=== PATIENT | female | born 1990 | race Caucasian/White ===

== ENCOUNTER 2023-05-21 06:17 | Emergency (ER) | payer MEDICAID, SELFPAY ==
[2023-05-21 06:24] VITALS: TEMP 36.8; BMI 35.5
--- NOTE | 2023-05-21 06:35 | XR_ITS ---
WS: [id number] Exam: XR foot LT min 3V* [id number] Date/Time of Exam: 05/21/2023 6:35 AM Reason For Exam: trauma No fracture or dislocation. Soft tissues are unremarkable. Small plantar heel spur. XR/XR foot LT min 3V* [id number] IMPRESSION: 1. No fracture or other significant finding.
--- NOTE | 2023-05-21 06:43 | ED.C_ITS ---
HPI - Psych General: Chief Complaint: Psychiatric Symptoms Stated Complaint: NADEGE DUONG Time Seen by Provider: 05/21/23 06:23 Source: patient Mode of arrival: ambulatory History of Present Illness: 33-year-old female presents emergency room complaining of suicidal ideation. She has been going on for 5 years she has not done anything to advance lethality she has not actually had a specific plan she seen at [facility] in [place] she had increasing suicidal thoughts recently and they upped her medication. She is on divalproex acid as well as Risperdal that increased her Risperdal. She has not been admitted for inpatient psychiatric care since she had tried to harm herself at the age of 14. She states she is also had some anxiety attacks. She is not having any specific suicidal thoughts at this time but has had some di fficult time sleeping last night. Additionally she stepped on a nail with her left foot it did bleed a little but she is unsure of when or if she is ever even had a tetanus shot. MD complaint: suicidal ideation and feels depressed Onset (ago): year(s) (5) Duration: intermittent History of same: Yes Relieving factors: none Exacerbating factors: none Associated psychiatric symptoms: depression Associated symptoms: Reports depression and suicidal ideation Treatments prior to arrival: none If self harm: admits thoughts of self harm Review of Systems Const: Denies: fever(s), chills, body aches, change in appetite, fatigue or malaise ENMT: Denies: throat pain, ear or mastoid pain, nasal discharge or nasal congestion Card: Denies: chest pain, edema, dyspnea on exertion or orthopnea Resp: Denies: dyspnea, productive cough or non-productive cough GI: Denies: abdominal pain, nausea, vomiting, diarrhea or constipation : Denies: flank pain, difficulty voiding, dysuria, urinary frequency or urinary urgency Skin/Breast: Denies: rash or pruritus Psych: Reports: depression and suicidal ideation [facility] ED PFSH: Medical History (Updated 05/21/23 @ 07:51 by Reinier Trujillo DO) Depression Physical Exam Const: COMMON NORMALS: no acute distress GENERAL APPEARANCE: cooperative and comfortable ORIENTATION/CONSCIOUSNESS: Yes awake, Yes oriented to person, Yes oriented to place and Yes oriented to time HENMT: COMMON NORMALS: normocephalic, atraumatic and hearing grossly normal bilaterally HEAD & SCALP: normocephalic and atraumatic Resp: COMMON NORMALS: normal respiratory effort, No retractions, No use of accessory muscles and clear to auscultation bilaterally AUSCULTATION: clear to auscultation bilaterally Cardio: COMMON NORMALS: regular rate, regular rhythm and No murmurs present (Cardio) RATE: regular rate RHYTHM: regular rhythm Extremity: COMMON NORMALS: normal to inspection, capillary refill normal, no clubbing, cyanosis or edema, no calf tenderness and no pedal edema Neuro: SENSORIUM/ORIENTATION: Yes oriented to person, Yes oriented to place and Yes oriented to time Skin: COMMON NORMALS: no rashes or lesions noted GENERAL SKIN EXAM: no rashes or lesions noted Course Vital Signs: Vital signs: Vital Signs Temperature 98.3 F 05/21/23 06:24 Pulse Rate 79 05/21/23 09:08 Respiratory Rate 17 05/21/23 09:08 Blood Pressure 144/116 05/21/23 07:02 Pulse Oximetry 99 05/21/23 09:08 Oxygen Delivery Me thod Room Air 05/21/23 07:02 [facility] - Psych Medical Decision Making Patient reports ongoing depression and suicidal thoughts but has not acted on them in several years. She reports no plan to act on them now she has not done anything to advance lethality. Discussed with Dr. Cabrera he concurs does not recommend changing her medications at this point we did add hydroxyzine to use as a short-term as needed. Patient is interested in changing to behavioral health care she is also has some other questions regarding available services to help her due to her mental health issues. Dr. Cabrera and I both felt she could be discharged we will have her go with staff to the crisis intervention to see if they can help arrange for some other services that might be helpful. Patient expresses understanding she reports no suicidal thoughts or plan at this time. Incidentally she had stepped on a nail x-ray was negative no significant laceration or sign of infection on the left foot tetanus updated Medical Records I reviewed the patient's medical records. Lab Data I reviewed the patient's lab results. 05/21/23 07:08 05/21/23 07:08 Radiology Impressions Foot X-Ray 05/21/23 06:35 IMPRESSION: 1. No fracture or other significant finding. Laboratory Results WBC 11.9 10^3/uL (4.0-10.0) H 05/21/23 07:08 RBC 4.85 10^6/uL (4.1-5.3) 05/21/23 07:08 Hgb 15.6 g/dL (11.5-15.3) H 05/21/23 07:08 Hct 44.6 % (37.0-47.0) 05/21/23 07:08 MCV 92.0 fl (81-99) 05/21/23 07:08 MCH 32.2 pg (28.0-34.0) 05/21/23 07:08 MCHC 35.0 g/dL (30.0-36.0) 05/21/23 07:08 RDW 12.4 % (12.1-15.1) 05/21/23 07:08 Plt Count 298 10^3/cmm (130-400) 05/21/23 07:08 MPV 8.6 fL (7.4-10.4) 05/21/23 07:08 Neut % (Auto) 59.1 % 05/21/23 07:08 Lymph % (Auto) 31.6 % 05/21/23 07:08 [place] % (Auto) 7.0 % 05/21/23 07:08 Eos % (Auto) 1.2 % 05/21/23 07:08 Baso % (Auto) 0.6 % 05/21/23 07:08 Neut # (Auto) 7.01 10^3/uL (1.8-7.7) 05/21/23 07:08 Lymph # (Auto) 3.7 10^3/uL (0.8-4.8) 05/21/23 07:08 [place] # (Auto) 0.8 10^3/uL (0.2-0.9) 05/21/23 07:08 Eos # (Auto) 0.1 10^3/uL (0.0-0.8) 05/21/23 07:08 Baso # (Auto) 0.1 10^3/uL (0.0-0.1) 05/21/23 07:08 Nucleated RBC % (auto) 0 % 05/21/23 07:08 Nucleated RBCs # 0.0 /100WBC 05/21/23 07:08 Sodium 136 mmol/L (136-145) 05/21/23 07:08 Potassium 3.8 mmol/L (3.5-5.1) 05/21/23 07:08 Chloride 100 mmol/L (98-107) 05/21/23 07:08 Carbon Dioxide 25 mmol/L (22-29) 05/21/23 07:08 Anion Gap 14.8 (5-19) 05/21/23 07:08 BUN 7 mg/dL (6-20) 05/21/23 07:08 Creatinine 0.5 mg/dL (0.5-0.9) 05/21/23 07:08 GFR Calculation 141.2 mL/min (90-130) H 05/21/23 07:08 Glucose 105 mg/dL (65-115) 05/21/23 07:08 Calculated Osmolality 280 mOsm/kg (285-295) L 05/21/23 07:08 Calcium 8.7 mg/dL (8.5-10.5) 05/21/23 07:08 Total Bilirubin 0.8 mg/dL (0.15-1.2) 05/21/23 07:08 AST 11 U/L (0-32) 05/21/23 07:08 ALT 8 U/L (0-33) 05/21/23 07:08 Alkaline Phosphatase 56 U/L (35-105) 05/21/23 07:08 Total Protein 7.2 g/dL (6.6-8.7) 05/21/23 07:08 Albumin 4.0 g/dL (3.5-5.2) 05/21/23 07:08 Globulin 3.2 g/dL (1.3-4.6) 05/21/23 07:08 HCG, Qual Negative (Negative) 05/21/23 07:04 Urine Color Yellow (Yellow) 05/21/23 07:04 Urine Appearance Clear (CLEAR) 05/21/23 07:04 Urine pH 7 (5-7) 05/21/23 07:04 Ur Specific Desmet 1.010 (1.005-1.030) 05/21/23 07:04 Urine Protein Neg (Negative) 05/21/23 07:04 Urine Glucose (UA) Norm (Normal) 05/21/23 07:04 Urine Ketones Negative (Negative) 05/21/23 07:04 Urine Blood 3+ (Negative) H 05/21/23 07:04 Urine Nitrate Negative (Negative) 05/21/23 07:04 Urine Bilirubin Neg (Negative) 05/21/23 07:04 Urine Urobilinogen Norm mg/dL (Negative) 05/21/23 07:04 Ur Leukocyte Esterase Negative (Negative) 05/21/23 07:04 Urine RBC 15-25 /hpf (0-2) H 05/21/23 07:04 Urine WBC 0-4 /hpf (0-5) H 05/21/23 07:04 Ur Squamous Epith Cells 0-4 /hpf (0-5) H 05/21/23 07:04 Amorphous Sediment Not Reportable 05/21/23 07:04 Urine Bacteria None /hpf (NONE) 05/21/23 07:04 Urine Mucus Trace /hpf 05/21/23 07:04 Salicylates < 0.3 mg/dL (3-10) L 05/21/23 07:08 Acetaminophen < 5.0 ug/mL (10-30) L 05/21/23 07:08 Discharge Plan Discharge Patient Disposition: Home Clinical Impression: Depression Condition: Stable Prescriptions: New hydroxyzine HCl 25 mg tablet 25 mg PO Q6H PRN (Reason: anxiety) Qty: 15 0RF No Action Depakote ER 500 mg Tablet Extended Release 24 Hr See Rx Instructions .ROUTE .COMPLEX Rx Instructions: take 2 (500mg) tablets PO at bedtime Risperdal 2 mg Tablet 2 mg PO BEDTIME propranolol 10 mg Tablet 10 mg PO BID PRN (Reason: Anxiety) Discharge Orders: Discharge ED (Routine); Ordered 05/21/23 Ordered By: Reinier Trujillo Referrals: Michael Jeffries MD [Primary Care Provider] - Discharge Diet: Usual diet Discharge Activity: Resume usual activity Patient Instructions: Opioid Safety, Pain Management Activity Restrictions/Additional Instructions: You were seen today for depression and anxiety. We discussed your case with the on-call psychiatrist, he did not feel that admission would be necessary at this time. After discharge staff will bring into the crisis intervention center where they can help you access other resources to help with your mental health issues. Coding Level of Care Code ED Director Corporate for Alysa Obando
[2023-05-21 07:02] VITALS: BP 144/116; PULSE 79; RESP 17; O2SAT 99
[2023-05-21 07:13] LABS: Add Urine Microscopic? YES; Bilirubin Urine Neg (Negative); Blood Urine 3+ (Negative); Glucose Urine UA Norm (Normal); Ketones Urine Negative (Negative); Leukocyte Esterase Urine Negative (Negative); Nitrate Urine Negative (Negative); Protein Urine Neg (Negative); Urine Appearance Clear (CLEAR); Urine Color Yellow (Yellow); Urobilinogen Urine Norm (Negative); pH Urine 7 (5-7)
[2023-05-21 07:16] LABS: Basophils # 0.1 10^3/uL (0.0-0.1); Basophils % 0.6 %; Eosinophils # 0.1 10^3/uL (0.0-0.8); Eosinophils % 1.2 %; Hematocrit 44.6 % (37.0-47.0); Hemoglobin 15.6 g/dL (11.5-15.3); Lymphocytes # 3.7 10^3/uL (0.8-4.8); Lymphocytes % 31.6 %; Mean Corpuscular Hemoglobin 32.2 pg (28.0-34.0); Mean Platelet Volume 8.6 fL (7.4-10.4); Monocytes # 0.8 10^3/uL (0.2-0.9); Neutrophils # 7.01 10^3/uL (1.8-7.7); Neutrophils % 59.1 %; Nucleated Red Blood Cells % 0 %; Platelet Count 298 10^3/cmm (130-400); Red Blood Count 4.85 10^6/uL (4.1-5.3); Red Cell Distribution Width 12.4 % (12.1-15.1); White Blood Count 11.9 10^3/uL (4.0-10.0)
[2023-05-21 07:22] LABS: HCG Qualitative Urine. Negative (Negative)
[2023-05-21 07:25] LABS: Add Urine Culture? No; Mucus Urine TRACE /hpf; RBC Urine 15-25 /hpf (0-2); Squamous Epithelial Cell Urine 0-4 /hpf (0-5); WBC Urine 0-4 /hpf (0-5)
[2023-05-21 07:45] LABS: Alanine Aminotransferase 8 U/L (0-33); Alkaline Phosphatase 56 U/L (35-105); Anion Gap 14.8 (5-19); Aspartate Amino Transferase 11 U/L (0-32); Blood Urea Nitrogen 7 mg/dL (6-20); Calcium 8.7 mg/dL (8.5-10.5); Carbon Dioxide 25 mmol/L (22-29); Chloride 100 mmol/L (98-107); Globulin 3.2 g/dL (1.3-4.6); Glomerular Filtration Rate 141.2 mL/min (90-130); Glucose 105 mg/dL (65-115); Osmolality Calculated 280 mOsm/kg (285-295); Potassium 3.8 mmol/L (3.5-5.1); Sodium 136 mmol/L (136-145); Total Bilirubin 0.8 mg/dL (0.15-1.2); Total Protein 7.2 g/dL (6.6-8.7)
[2023-05-21 07:47] LABS: Acetaminophen < 5.0 ug/mL (10-30); Salicylate < 0.3 mg/dL (3-10)
[2023-05-21] MEDS: tetanus-dipt-pertussis 0.5 mL SDV IM (08:09)
[2023-05-21 09:08] VITALS: PULSE 79; RESP 17; O2SAT 99
== END 2023-05-21 08:35 | disposition home or self-care (01) ==
PROVIDERS: Emergency Provider Family Medicine; PCP Family Medicine
DX: F32.A Depression, unspecified (principal); Z23 Encounter for immunization; S91.332A Puncture wound without foreign body, left foot, initial encounter; W45.0XXA Nail entering through skin, initial encounter
CPT/HCPCS: 36415; 73630; 80053; 80307; 81001; 81025; 85025; 90471; 90715; 99284

== ENCOUNTER 2024-04-07 14:20 | Outpatient (CLI) | payer MEDICAID, SELFPAY ==
--- NOTE | 2024-04-07 14:25 | MM_ITS ---
WS: [id number] BILATERAL 3D TOMOSYNTHESIS DIGITAL DIAGNOSTIC MAMMOGRAPHY WITH CAD CLINICAL INFORMATION: CHANGE IN SKIN HISTORY: LEFT breast redness. No trauma. No antibiotics. COMPARISON: None. TECHNIQUE: Bilateral CC, MLO, and ML views. FINDINGS: Scattered fibroglandular densities bilaterally. A few incidental punctate calcifications. Dense sligh tly spiculated parenchymal tissue upper outer LEFT breast at the 3 o'clock position. This mostly comp resses out on the spot compression views. Ultrasound of this area will be obtained also. No suspicious focal mass, asymmetry, calcifications, or architectural distortion. Ultrasound LEFT breast is pending. ULTRASOUND BREAST LEFT TECHNIQUE: Ultrasound left breast focused area of concern. CLINICAL INFORMATION: CHANGE IN SKIN FINDINGS: Ultrasound LEFT breast area of concern and upper outer quadrant 3 o'clock position. Dense fibrous tissue at the 3 o'clock position. No cystic or solid lesions in this area. Ultrasound in the area of concern/redness demonstrates normal underlying parenchymal tissue. No cysti c or solid lesions. No fluid collections. No significant skin thickening in this area. Findings have a benign appearance. MM/[place] [id number] IMPRESSION: BI-RADS: 2-Benign FOLLOW UP: Age 39 Recommend annual screening mammography age 39 If persistent redness or clinical concern patient can return for additional fol low-up imaging
== END 2024-04-07 14:21 | disposition home or self-care (01) ==
LOC: RAD 14:20
PROVIDERS: PCP Family Medicine; Visit Provider Family Medicine
DX: N64.59 Other signs and symptoms in breast (principal); R92.323 Mammographic fibroglandular density, bilateral breasts; R92.1 Mammographic calcification found on diagnostic imaging of breast
CPT/HCPCS: 76642; 77062; G0279